=== PATIENT | male | born 1995 | race Two or more races ===

== ENCOUNTER 2019-04-24 10:44 | Emergency (ER) | payer OTHER ==
[~2019-04-24] VITALS: Ht 170.2 cm; Wt 90.7 kg
[2019-04-24 10:56] VITALS: BP 124/84
--- NOTE | 2019-04-24 11:30 | NUR ---
SEEN AND EXAMINED BY ERMD. MEDICALLY CLEARED FOR BOOKING. D/C IN STABLE CONDITION.
== END 2019-04-24 11:31 ==
LOC: ER 10:49
DX: S60.511A Abrasion of right hand, initial encounter (principal); Y08.89XA Assault by other specified means, initial encounter; Y93.89 Activity, other specified; Y92.89 Other specified places as the place of occurrence of the external cause; Y99.8 Other external cause status

== ENCOUNTER 2019-08-15 12:27 | Emergency (ER) | payer OTHER ==
[~2019-08-15] VITALS: Ht 165.1 cm; Wt 77.1 kg
[2019-08-15 12:37] VITALS: BP 134/44
--- NOTE | 2019-08-15 12:54 | NUR ---
Patient discharged to [facility] in stable condition. Written and verbal after care instructions given. Patient verbalizes understanding of instruction.
== END 2019-08-15 13:17 ==
LOC: ER 12:37
DX: R10.9 Unspecified abdominal pain (principal); Z02.89 Encounter for other administrative examinations